=== PATIENT | female | born 1970 | race Caucasian/White ===

== ENCOUNTER 2023-10-22 16:26 | Emergency (ER) | payer OTHER, SELFPAY ==
[2023-10-22] VITALS (7 sets, daily range): BP systolic 91–102; BP diastolic 47–62; PULSE 73–90; RESP 16; TEMP 36.5; O2SAT 92–100
--- NOTE | 2023-10-22 16:35 | EKG_ITS ---
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
--- NOTE | 2023-10-22 16:39 | DI.CT.S_ITS ---
PROCEDURE: CT ABDOMEN PELVIS W CON INDICATIONS: Abdominal pain with nausea and vomiting TECHNIQUE: After the administration of intravenous contrast, axial sections acquired from the lung bases to the pubic symphysis. Coronal and sagittal reformats were performed. For radiation dose reduction, the following was used: automated exposure control, adjustment of mA and/or kV according to patient size. COMPARISON: None. FINDINGS: Image quality: Diagnostic. Lower Chest: No significant findings. ABDOMEN: Liver: No solid mass. Gallbladder: Surgically absent. Biliary ducts: No biliary dilation. Pancreas: No ductal dilation. Spleen: Size is within normal limits. Adrenal Glands: Indeterminate right adrenal nodule measuring 1.8 cm. Kidneys and Ureters: No hydronephrosis. No solid mass. No complex renal cystic lesion which requires follow up. Stomach and Bowel: Small hiatal hernia. Sleeve gastrectomy. Multiple loops of small bowel within the lower abdomen demonstrating wall thickening. Fluid throughout the colon. Peritoneum: Mild mesenteric stranding. Trace free fluid within the pelvis.. No free air. Ventral Wall: No significant ventral hernia. Abdominal Nodes: No retroperitoneal or mesenteric adenopathy by size criteria. Vessels: Aorta and inferior vena cava are normal in size. Atherosclerotic vascular calcifications. PELVIS: Pelvic Organs: Unremarkable. Bladder: No bladder wall thickening, accounting for underdistention. Pelvic Nodes: No enlarged lymph nodes. Miscellaneous: No inguinal hernias are seen. Bones: No aggressive osseous abnormality. IMPRESSION: 1. Findings consistent with enterocolitis. Mild mesenteric edema and trace free fluid within pelvis is likely reactive. 2. Indeterminate right adrenal nodule measuring 1.8 cm. Recommend nonurgent MRI or CT adrenal protocol. Dictated by: Tru Holland M.D. on 10/22/2023 at 17:31 Approved by: Tru Holland M.D. on 10/22/2023 at 17:35
[2023-10-22] MEDS: MORPHINE 4 MG/ML INJ IV (17:01)
[2023-10-22] MEDS: ONDANSETRON 4 MG/2 ML INJ IV (17:01)
[2023-10-22 17:03] LABS: Add Manual Diff / Slide Review NO; Basophils Absolute Auto 0 /uL (0-100); Basophils Percent Auto 0.2 % (0-2); Eosinophils Absolute Auto 100 /uL (0-450); Eosinophils Percent Auto 0.5 % (2-4); Hematocrit 39.2 % (36-46); Hemoglobin 12.8 g/dL (12.0-16.0); Lymphocytes Absolute Auto 1000 /uL (1100-4500); Lymphocytes Percent Auto 8.8 % (25-40); Mean Corpuscular HGB Conc 32.8 % (30-36); Mean Corpuscular Hemoglobin 31.2 PG (26-34); Monocytes Absolute Auto 200 /uL (0-900); Neutrophils Absolute Auto 10100 /uL (1500-7000); Neutrophils Percent Auto 88.5 % (50-75); Platelet Count 210 X10^3/uL (150-400); Red Blood Cell Count 4.12 X10^6/uL (4.0-5.2); Red Cell Distribution Width 13.8 % (11.6-14.8); White Blood Cell Count 11.4 X10^3/uL (4.5-11.0)
--- NOTE | 2023-10-22 17:09 | ED.GENADULT ---
HPI - General Adult <Aldo Mathew DO - Last Filed: 10/23/23 07:05> General Chief complaint: Abdominal Pain Stated complaint: Abd pain/ hypotension Time Seen by Provider: 10/22/23 16:39 Source: patient and EMS Mode of arrival: EMS History of Present Illness HPI narrative: Patient is a 53-year-old female. 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 Is here for evaluation of abdominal discomfort. Patient states that this morning she woke up. Was very nauseous. Had several episodes of loose stools. Then she started to develop abdominal discomfort. States there was at baseline discomfort that is there all the time but sharp pain that increases. It is in her epigastric region. She continues to be nauseous. Is also having chills. No urinary symptoms. Did eat raw oysters last night. Other individuals who ate the oysters are not sick. Patient has had her gallbladder removed. Related Data Previous Rx's Medication Instructions Recorded dicyclomine 20 mg tablet 20 mg PO TID PRN abdominal pain 10/22/23 #60 tabs ondansetron 4 mg disintegrating 4 mg PO Q8H PRN nausea and 10/22/23 tablet vomiting #30 tabs Allergies Allergy/AdvReac Type Severity Reaction Status Date / Time No Known Drug Allergies Allergy Verified 10/22/23 16:39 Review of Systems <Aldo Mathew DO - Last Filed: 10/23/23 07:05> Review of Systems ROS Unobtainable: All systems reviewed & are unremarkable except as noted in HPI and below Exam <Aldo Mathew DO - Last Filed: 10/23/23 07:05> Initial Vital Signs Initial Vital Signs: Vital Signs Temperature 97.7 F 10/22/23 16:26 Pulse Rate 90 10/22/23 16:26 Respiratory Rate 16 10/22/23 16:26 Blood Pressure 100/47 L 10/22/23 16:26 Pulse Oximetry 99 10/22/23 16:26 Oxygen Delivery Method Room Air 10/22/23 16:26 Const General: cooperative, comfortable and No ill appearing [facility] Head: normal to inspection and normocephalic Resp Effort & Inspection: normal respiratory effort Auscultation: clear to auscultation bilaterally Cardio Rate: regular rate Rhythm: regular rhythm GI Inspection: normal to inspection and non-distended Palpation: soft, No firm, No guarding and tender Back/Spine/Pelvis Back: No CVA tenderness Skin General: no rashes or lesions noted Neuro General: patient alert, patient awake and moves all extremities Extrem General: normal to inspection <Elizabeth Norman MD - Last Filed: 10/23/23 05:37> Initial Vital Signs Initial Vital Signs: Vital Signs Temperature 97.7 F 10/22/23 16:26 Pulse Rate 90 10/22/23 16:26 Respiratory Rate 16 10/22/23 16:26 Blood Pressure 100/47 L 10/22/23 16:26 Pulse Oximetry 99 10/22/23 16:26 Oxygen Delivery Method Room Air 10/22/23 16:26 Course <Aldo Mathew DO - Last Filed: 10/23/23 07:05> Orders Ordered: Discontinued Medications Sodium Chloride (Normal Saline 0.9%) 1,000 mls @ 1,000 mls/hr IV BOLUS ONE Stop: 10/22/23 17:38 Last Infusion: 10/22/23 18:45 Dose: Infused Documented By: Admin: 10/22/23 17:30 Dose: 1,000 mls/hr Documented By: HANSEL Morphine Sulfate (Morphine 4 Mg/Ml Inj) 4 mg IV NOW ONE Stop: 10/22/23 16:40 Last Admin: 10/22/23 17:01 Dose: 4 mg Documented By: HANSEL Ondansetron HCl (Ondansetron 4 Mg/2 Ml Inj) 4 mg IV NOW PRN PRN Reason: Nausea And Vomiting Last Admin: 10/22/23 17:01 Dose: 4 mg Documented By: HANSEL Ondansetron HCl (Ondansetron 4 Mg Odt) 4 mg PO NOW PRN PRN Reason: Nausea And Vomiting Vital Signs Vital signs: Vital Signs - 8 hr 10/22/23 16:26 10/22/23 16:32 10/22/23 16:32 Temperature 97.7 F Pulse Rate 90 90 Respiratory Rate 16 Blood Pressure 100/47 L 100/47 L Pulse Oximetry 99 100 Oxygen Delivery Method Room Air 10/22/23 16:33 10/22/23 16:33 Temperature Pulse Rate 88 Respiratory Rate Blood Pressure 96/51 L Pulse Oximetry 99 Oxygen Delivery Method <Elizabeth Norman MD - Last Filed: 10/23/23 05:37> Orders Ordered: Discontinued Medications Sodium Chloride (Normal Saline 0.9%) 1,000 mls @ 1,000 mls/hr IV BOLUS ONE Stop: 10/22/23 17:38 Last Infusion: 10/22/23 18:45 Dose: Infused Documented By: Admin: 10/22/23 17:30 Dose: 1,000 mls/hr Documented By: HANSEL Morphine Sulfate (Morphine 4 Mg/Ml Inj) 4 mg IV NOW ONE Stop: 10/22/23 16:40 Last Admin: 10/22/23 17:01 Dose: 4 mg Documented By: HANSEL Ondansetron HCl (Ondansetron 4 Mg/2 Ml Inj) 4 mg IV NOW PRN PRN Reason: Nausea And Vomiting Last Admin: 10/22/23 17:01 Dose: 4 mg Documented By: HANSEL Ondansetron HCl (Ondansetron 4 Mg Odt) 4 mg PO NOW PRN PRN Reason: Nausea And Vomiting Vital Signs Vital signs: Vital Signs - 8 hr 10/22/23 16:26 10/22/23 16:32 10/22/23 16:32 Temperature 97.7 F Pulse Rate 90 90 Respiratory Rate 16 Blood Pressure 100/47 L 100/47 L Pulse Oximetry 99 100 Oxygen Delivery Method Room Air 10/22/23 16:33 10/22/23 16:33 Temperature Pulse Rate 88 Respiratory Rate Blood Pressure 96/51 L Pulse Oximetry 99 Oxygen Delivery Method Medical Decision Making <Aldo Mathew DO - Last Filed: 10/23/23 07:05> Lab Data Lab results reviewed: Yes I reviewed the patient's lab results. 10/22/23 16:48 10/22/23 16:48 Labs: Lab Results 10/22/23 Range/Units 16:48 WBC 11.4 H (4.5-11.0) X10^3/uL RBC 4.12 (4.0-5.2) X10^6/uL Hgb 12.8 (12.0-16.0) g/dL Hct 39.2 (36-46) % MCV 95.0 (80-100) fL MCH 31.2 (26-34) PG MCHC 32.8 (30-36) % RDW 13.8 (11.6-14.8) % Plt Count 210 (150-400) X10^3/uL Neut % (Auto) 88.5 H (50-75) % Lymph % (Auto) 8.8 L (25-40) % [place] % (Auto) 2.0 L (3-14) % Eos % (Auto) 0.5 L (2-4) % Baso % (Auto) 0.2 (0-2) % Neut # (Auto) 13856 H (5316-8646) /uL Lymph # (Auto) 1000 L (9048-6645) /uL [place] # (Auto) 200 (0-900) /uL Eos # (Auto) 100 (0-450) /uL Baso # (Auto) 0 (0-100) /uL Sodium 139 (137-145) mmol/L Potassium 3.7 (3.4-5.1) mmol/L Chloride 112 H (98-107) mmol/L Carbon Dioxide 22 (22-32) mmol/L BUN 7 (7-17) mg/dL Creatinine 0.63 (0.52-1.04) mg/dL Estimated GFR > 60 (>60) mL/min BUN/Creatinine Ratio 11.1 (6-22) Glucose 105 H (70-100) mg/dL Lactate 1.6 (0.7-2.1) mmol/L Calcium 7.9 L (8.4-10.2) mg/dL Total Bilirubin 0.8 (0.2-1.3) mg/dL AST 24 (14-36) IU/L ALT 14 (<35) IU/L Alkaline Phosphatase 66 (38-126) U/L Total Protein 5.7 L (6.3-8.2) g/dL Albumin 3.5 (3.5-5.0) g/dL Globulin 2.2 (1.7-4.1) g/dL Albumin/Globulin Ratio 1.6 (1.0-2.8) Lipase 67 (23-300) U/L Urine Dip Bedside Urine Glucose Negative Bedside Urine Bilirubin - Negative Bedside Urine Ketone - Negative Urine Specific [place] 1.015 Bedside Urine Occult Blood - Negative Bedside Urine pH 6.0 Bedside Urine Protein - Negative Bedside Urine Urobilinogen - Negative Bedside Urine Nitrite - Negative Bedside Urine Leukocytes - Negative Esterase Point of care testing: Urine Dip Bedside Urine Glucose Negative Bedside Urine Bilirubin - Negative Bedside Urine Ketone - Negative Urine Specific [place] 1.015 Bedside Urine Occult Blood - Negative Bedside Urine pH 6.0 Bedside Urine Protein - Negative Bedside Urine Urobilinogen - Negative Bedside Urine Nitrite - Negative Bedside Urine Leukocytes - Negative Esterase Imaging Data CT scan - abdomen/pelvis: Radiologist's Impression: PROCEDURE: CT ABDOMEN PELVIS W CON INDICATIONS: Abdominal pain with nausea and vomiting TECHNIQUE: After the administration of intravenous contrast, axial sections acquired from the lung bases to the pubic symphysis. Coronal and sagittal reformats were performed. For radiation dose reduction, the following was used: automated exposure control, adjustment of mA and/or kV according to patient size. COMPARISON: None. FINDINGS: Image quality: Diagnostic. Lower Chest: No significant findings. ABDOMEN: Liver: No solid mass. Gallbladder: Surgically absent. Biliary ducts: No biliary dilation. Pancreas: No ductal dilation. Spleen: Size is within normal limits. Adrenal Glands: Indeterminate right adrenal nodule measuring 1.8 cm. Kidneys and Ureters: No hydronephrosis. No solid mass. No complex renal cystic lesion which requires follow up. Stomach and Bowel: Small hiatal hernia. Sleeve gastrectomy. Multiple loops of small bowel within the lower abdomen demonstrating wall thickening. Fluid throughout the colon. Peritoneum: Mild mesenteric stranding. Trace free fluid within the pelvis.. No free air. Ventral Wall: No significant ventral hernia. Abdominal Nodes: No retroperitoneal or mesenteric adenopathy by size criteria. Vessels: Aorta and inferior vena cava are normal in size. Atherosclerotic vascular calcifications. PELVIS: Pelvic Organs: Unremarkable. Bladder: No bladder wall thickening, accounting for underdistention. Pelvic Nodes: No enlarged lymph nodes. Miscellaneous: No inguinal hernias are seen. Bones: No aggressive osseous abnormality. IMPRESSION: 1. Findings consistent with enterocolitis. Mild mesenteric edema and trace free fluid within pelvis is likely reactive. 2. Indeterminate right adrenal nodule measuring 1.8 cm. Recommend nonurgent MRI or CT adrenal protocol. ECG Data Attestation: I personally reviewed and interpreted this ECG as follows: Interpretation: Sinus rhythm Normal axis Ventricular rate of [address] T wave changes MDM Narrative Medical decision making narrative: Generalized abdominal pain. Quite a bit of epigastric pain. Quite a bit of nausea. Afebrile. Labs are unremarkable. CT scan was ordered. CT scan consistent with enterocolitis. Does Has have an adrenal nodule has a incidental finding. Care turned over to Dr. Norman to continue observe, p.o. trial and does appear discharge. <Elizabeth Norman MD - Last Filed: 10/23/23 05:37> Lab Data Labs: Lab Results 10/22/23 Range/Units 16:48 WBC 11.4 H (4.5-11.0) X10^3/uL RBC 4.12 (4.0-5.2) X10^6/uL Hgb 12.8 (12.0-16.0) g/dL Hct 39.2 (36-46) % MCV 95.0 (80-100) fL MCH 31.2 (26-34) PG MCHC 32.8 (30-36) % RDW 13.8 (11.6-14.8) % Plt Count 210 (150-400) X10^3/uL Neut % (Auto) 88.5 H (50-75) % Lymph % (Auto) 8.8 L (25-40) % [place] % (Auto) 2.0 L (3-14) % Eos % (Auto) 0.5 L (2-4) % Baso % (Auto) 0.2 (0-2) % Neut # (Auto) 70973 H (2371-0025) /uL Lymph # (Auto) 1000 L (3114-1153) /uL [place] # (Auto) 200 (0-900) /uL Eos # (Auto) 100 (0-450) /uL Baso # (Auto) 0 (0-100) /uL Sodium 139 (137-145) mmol/L Potassium 3.7 (3.4-5.1) mmol/L Chloride 112 H (98-107) mmol/L Carbon Dioxide 22 (22-32) mmol/L BUN 7 (7-17) mg/dL Creatinine 0.63 (0.52-1.04) mg/dL Estimated GFR > 60 (>60) mL/min BUN/Creatinine Ratio 11.1 (6-22) Glucose 105 H (70-100) mg/dL Lactate 1.6 (0.7-2.1) mmol/L Calcium 7.9 L (8.4-10.2) mg/dL Total Bilirubin 0.8 (0.2-1.3) mg/dL AST 24 (14-36) IU/L ALT 14 (<35) IU/L Alkaline Phosphatase 66 (38-126) U/L Total Protein 5.7 L (6.3-8.2) g/dL Albumin 3.5 (3.5-5.0) g/dL Globulin 2.2 (1.7-4.1) g/dL Albumin/Globulin Ratio 1.6 (1.0-2.8) Lipase 67 (23-300) U/L Urine Dip Bedside Urine Glucose Negative Bedside Urine Bilirubin - Negative Bedside Urine Ketone - Negative Urine Specific [place] 1.015 Bedside Urine Occult Blood - Negative Bedside Urine pH 6.0 Bedside Urine Protein - Negative Bedside Urine Urobilinogen - Negative Bedside Urine Nitrite - Negative Bedside Urine Leukocytes - Negative Esterase Point of care testing: Urine Dip Bedside Urine Glucose Negative Bedside Urine Bilirubin - Negative Bedside Urine Ketone - Negative Urine Specific [place] 1.015 Bedside Urine Occult Blood - Negative Bedside Urine pH 6.0 Bedside Urine Protein - Negative Bedside Urine Urobilinogen - Negative Bedside Urine Nitrite - Negative Bedside Urine Leukocytes - Negative Esterase MDM Narrative Medical decision making narrative: Generalized abdominal pain. Quite a bit of epigastric pain. Quite a bit of nausea. Afebrile. Labs are unremarkable. CT scan was ordered. CT scan consistent with enterocolitis. Does Has have an adrenal nodule has a incidental finding. Care turned over to Dr. Norman to continue observe, p.o. trial and does appear discharge. Dr. Norman -patient reassessed, resting comfortably in bed. Tolerating ice chips. Patient reports feeling significantly better. Blood pressure has been in the 90s to 1 100s systolic, however map has consistently been above 65 and patient was not have any side effects from this blood pressure. Antinausea medication and antispasmodic medication sent to pharmacy of choice. Patient counseled on following a brat diet for the next several days as well as the importance of follow up with primary care doctor. Discharge Plan Departure Patient Disposition: Home Clinical Impression: Enterocolitis, Adrenal nodule Instructions: DI for Viral Gastroenteritis -- Adult Activity Restrictions/Additional Instructions: Your laboratory work and CT imaging today were reassuring. Incidentally you did have an adrenal nodule seen on your right adrena gland. These are usually incidental and do not cause issues, but I do recommend following up with your primary care doctor for any further necessary testing or treatment. Follow a light diet over the next several days. Make sure to stay hydrated and drink plenty of fluids. Prescriptions: New dicyclomine 20 mg tablet 20 mg PO TID PRN (Reason: abdominal pain) Qty: 60 0RF ondansetron 4 mg tablet,disintegrating 4 mg PO Q8H PRN (Reason: nausea and vomiting) Qty: 30 0RF Referrals: Miscellaneous,Doctor, MD [Primary Care Provider] - Stand Alone Forms: Patient Portal/API
[2023-10-22 17:10] LABS: Lactate (Lactic Acid) 1.6 mmol/L (0.7-2.1)
[2023-10-22 17:11] LABS: Alanine Aminotransferase 14 IU/L (<35); Albumin 3.5 g/dL (3.5-5.0); Albumin Globulin Ratio 1.6 (1.0-2.8); Alkaline Phosphatase 66 U/L (38-126); Aspartate Aminotransferase 24 IU/L (14-36); BUN Creatinine Ratio 11.1 (6-22); Bilirubin Total 0.8 mg/dL (0.2-1.3); Blood Urea Nitrogen 7 mg/dL (7-17); Calcium 7.9 mg/dL (8.4-10.2); Carbon Dioxide 22 mmol/L (22-32); Chloride 112 mmol/L (98-107); Estimated Glomerular Filt Rate > 60 mL/min (>60); Globulin 2.2 g/dL (1.7-4.1); Glucose 105 mg/dL (70-100); HEMOLYSIS 25 (0-50); Lipase 67 U/L (23-300); Potassium 3.7 mmol/L (3.4-5.1); Sodium 139 mmol/L (137-145); Total Protein 5.7 g/dL (6.3-8.2)
[2023-10-22] MEDS: SODIUM CHLORIDE 0.9% 1,000 ML 1000 ML IV (17:30)
== END 2023-10-22 19:10 | disposition home or self-care (01) ==
PROVIDERS: Emergency Provider Emergency Medicine
DX: K52.9 Noninfective gastroenteritis and colitis, unspecified (principal); E27.9 Disorder of adrenal gland, unspecified; R11.2 Nausea with vomiting, unspecified; R79.89 Other specified abnormal findings of blood chemistry; Z98.84 Bariatric surgery status
CPT/HCPCS: 36415; 74177; 80053; 81003; 83605; 83690; 85025; 93005; 96361; 96374; 96375; 99284; J2270; J2405; Q9967